=== PATIENT | male | born 1940 | race Caucasian/White ===

== ENCOUNTER 2020-12-04 06:50 | Inpatient (IN) | payer MEDICARE, OTHER ==
[2020-12-04 07:39] LABS: BASOPHIL 0.2 % (0-2); EOSINOPHIL 0.4 % (0-7); HCT 33.5 % (42.0-52.0); HGB 10.4 g/dl (13.2-18.0); LYMPHOCYTE 3.7 % (15-48); MCV 90.3 fL (78.0-100.0); MONOCYTE 8.5 % (0-12); MPV 10.5 fL (6.0-9.5); NEUTROPHIL 86.4 % (41-80); NRBC 0; PLT 425 K/uL (150-400); RBC 3.71 M/uL (4.70-6.00); RDW 13.5 % (11.5-14.0); WBC 20.2 K/uL (4.0-10.5)
[2020-12-04 08:19] LABS: LACTIC ACID 1.6 mmol/L (0.4-1.9)
[2020-12-04 08:25] LABS: ALBUMIN 2.1 g/dL (3.4-5.0); ALKALINE PHOSHATASE 244 U/L (46-116); ALT 25 U/L (16-63); AST 57 U/L (15-37); BILIRUBIN - TOTAL 0.8 mg/dL (0.2-1.0); BUN 32 mg/dL (7-18); BUN/CREAT RATIO (CALC) 24.4 RATIO; C-REACTIVE PROTEIN >18.00 mg/dL (<=0.90); CHLORIDE 100 mmol/L (98-107); CO2 (BICARBONATE) 24 mmol/L (21-32); CREATININE 1.31 mg/dL (0.67-1.17); GLOBULIN (CALCULATION) 4.8 g/dL; GLUCOSE 93 mg/dL (74-106); LIPASE 95 U/L (73-393); POTASSIUM 3.8 mmol/L (3.5-5.1); TOTAL PROTEIN 6.9 g/dL (6.4-8.2)
[2020-12-04 08:36] LABS: BILIRUBIN NEGATIVE (NEGATIVE); BLOOD 1+ Ery/uL (NEGATIVE); CLARITY CLEAR (CLEAR); COLOR YELLOW (YELLOW); GLUCOSE (U) NORMAL (NORMAL); LEUKOCYTES 1+ Leu/uL (NEGATIVE); NITRITE NEGATIVE (NEGATIVE); PROTEIN TRACE (LOW) mg/dL (NEGATIVE); UROBILINOGEN 0.2 mg/dL (0.2-1.0); pH 6.5 (5.0-9.0)
[2020-12-04 08:43] LABS: BACTERIA 1+; SQUAMOUS EPITHELIAL CELLS RARE
[2020-12-04] MEDS ORDERED: ELIQUIS5 MG PO (13:57)
[2020-12-04] MEDS ORDERED: LIPITOR20 MG PO (13:57)
[2020-12-04] MEDS ORDERED: COREG 6.25MG6.25 MG PO (13:57)
[2020-12-04] MEDS ORDERED: VITAMIN E400 UNI1 PO (13:58)
[2020-12-04] MEDS ORDERED: LOVAZA1 GM PO (13:58)
[2020-12-04] MEDS ORDERED: VITAMIN D PO (13:59)
[2020-12-04] MEDS ORDERED: FLOVENT HF120 PUFFS/ INH (14:00)
--- NOTE | 2020-12-04 16:07 | NUR ---
DR FIELD REQUESTED PATIENTS LIVING WILL, MEDICAL RECORDS CONTACTED AND STATED THEY DID NOT HAVE ONE ON FILE. PATIENT AND SPOUSE INFORMED, PATIENTS STATED SHE WILL LOOK FOR IT THIS EVENING AND BRING IT IN.
[2020-12-04] MEDS ORDERED: CETIRIZINE HCL10 MG PO (23:00)
[2020-12-04] MEDS ORDERED: SYNTHROID50 MCG PO (23:04)
[2020-12-05 05:29] LABS: BASOPHIL 0.4 % (0-2); EOSINOPHIL 1.1 % (0-7); HCT 29.3 % (42.0-52.0); LYMPHOCYTE 9.1 % (15-48); MCHC 30.7 g/dL (32.0-36.0); MCV 91.3 fL (78.0-100.0); MONOCYTE 9.4 % (0-12); MPV 10.7 fL (6.0-9.5); NRBC 0; PLT 364 K/uL (150-400); RBC 3.21 M/uL (4.70-6.00); RDW 13.5 % (11.5-14.0)
[2020-12-05 05:52] LABS: ALBUMIN 1.6 g/dL (3.4-5.0); BILIRUBIN - TOTAL 0.5 mg/dL (0.2-1.0); CREATININE 1.44 mg/dL (0.67-1.17); GLOBULIN (CALCULATION) 4.3 g/dL; MAGNESIUM 1.7 mg/dL (1.8-2.4); POTASSIUM 4.3 mmol/L (3.5-5.1); TOTAL PROTEIN 5.9 g/dL (6.4-8.2)
--- NOTE | 2020-12-05 13:56 | NUR ---
12/05/20 Mrs. Zuniga reported the following. Mr. Zuniga had 5 children; 4 are living. Ms. Zuniga had 5 children; 4 are living. - Mr. Zuniga lives with his spouse, Ms. Valencia' daughter, and Ms. Zuniga 23 y/o grandson. The grandson has been living in the home since age 15 after his mother . - Mr. Zuniga was playing golf 2 weeks ago. According to Ms. Zuniga, Mr. Zuniga has not been out of bed since hospitalized. - Ms. Zuniga doesn't believe HH is needed. She is a former [employer] and believes she can manage his care needs. They have a rw, wc, and 3in1 in the home. - Ms. Hopkins was provided with information re: the [facility]. - Will monitor for discharge planning needs.
[2020-12-06 06:57] LABS: BASOPHIL 0.1 % (0-2); EOSINOPHIL 0 % (0-7); HCT 36.5 % (42.0-52.0); HGB 11.3 g/dl (13.2-18.0); LYMPHOCYTE 4.3 % (15-48); MCH 28.5 pg (25.0-31.0); MCV 92.2 fL (78.0-100.0); MONOCYTE 3.7 % (0-12); MPV 10.7 fL (6.0-9.5); NEUTROPHIL 90.8 % (41-80); NRBC 0; PLT 499 K/uL (150-400); RBC 3.96 M/uL (4.70-6.00); RDW 13.5 % (11.5-14.0)
[2020-12-06 07:08] LABS: WBC 20.8 K/uL (4.0-10.5)
[2020-12-06 07:10] LABS: INR 1.14 (0.9-1.2); PROTHROMBIN TIME 13.9 SECONDS (11.4-13.6)
[2020-12-06 07:19] LABS: BUN/CREAT RATIO (CALC) 17.6 RATIO; CREATININE 1.42 mg/dL (0.67-1.17); POTASSIUM 4.2 mmol/L (3.5-5.1)
[2020-12-06 07:22] LABS: MAGNESIUM 2.3 mg/dL (1.8-2.4)
--- NOTE | 2020-12-06 12:40 | NUR ---
MR Zuniga is inp MS 202, transported to CT by Octaviano Cuevas via WC 11:20, 1130 attached Spo2, ECG, BP for baseline and continuous, Timeout completed with all in room NKDA, 1140 pt draped and CHG cleanser applied and let dry, first needle lidocaine local anesthetic, 1142 #20 IV started in L hand by Octaviano Cuevas WNL 1146 Procedure began please see Moderate Sedation Monitor Sheet 1155 procedure complete t cores retrieved for patho, no drug reactions noted, pt tolerated procedure very well pt stated "that was painless you all di a very good job" 1200 PT transported back to room 202 via stretcher on side maintaining pressure on site, report given to Qiana TENORIO
[2020-12-06] MEDS ORDERED: AUGMENTIN 875-1 EACH PO (15:55)
[2020-12-08] MEDS ORDERED: SYNTHROID200 MCG PO (17:25)
[2020-12-08] MEDS ORDERED: FLOVENT HFA12 GM NEB (17:27)
[2020-12-14] MEDS ORDERED: AUGMENTIN 875-1 EACH PO (11:00)
== END 2020-12-06 16:45 | disposition home or self-care (01) | DRG 871 ==
LOC: FER 06:50 → FMS 11:29
PROVIDERS: Internal Medicine; ADMIT Internal Medicine
PROC: 0FB13ZX Excision of Right Lobe Liver, Percutaneous Approach, Diagnostic (ICD-10-PCS; principal; 2020-12-06)
DX: A41.9 Sepsis, unspecified organism (principal); G93.41 Metabolic encephalopathy; N30.00 Acute cystitis without hematuria; C78.7 Secondary malignant neoplasm of liver and intrahepatic bile duct; K52.9 Noninfective gastroenteritis and colitis, unspecified; K59.00 Constipation, unspecified; I48.91 Unspecified atrial fibrillation; Z20.822 Contact with and (suspected) exposure to COVID-19; N18.30 Chronic kidney disease, stage 3 unspecified; E78.5 Hyperlipidemia, unspecified; E03.9 Hypothyroidism, unspecified; Z85.51 Personal history of malignant neoplasm of bladder; Z85.46 Personal history of malignant neoplasm of prostate; Z93.6 Other artificial openings of urinary tract status; Z98.890 Other specified postprocedural states; Z88.6 Allergy status to analgesic agent; Z87.891 Personal history of nicotine dependence; Z79.01 Long term (current) use of anticoagulants; Z79.899 Other long term (current) drug therapy; I25.2 Old myocardial infarction
CPT/HCPCS: 36415; 70553; 80048; 80053; 81001; 82140; 83605; 83690; 83735; 85025; 85610; 85730; 86140; 87088; 94010; 97161; 97165; 97530-GP; A9579; J1170; J1650; J2270; J2543; J2920; J3010; J7030; U0002